=== PATIENT | male | born 1965 | race Caucasian/White ===

== ENCOUNTER 2024-02-25 21:38 | Inpatient (IN) | payer SELFPAY ==
[~2024-02-25] VITALS: Ht 167.6 cm; Wt 77.3 kg
[2024-02-25] MEDS: VANCOMYCIN 1G PREMIX 200 ML IV ONE (22:00)
[2024-02-25 22:49] LABS: BASOPHILS % 0.3 % (0.0-2.0); EOSINOPHILS % 0.5 % (0.0-5.0); HEMATOCRIT. 21.1 % (42.0-52.0); HEMOGLOBIN. 7.1 g/dL (14.0-18.0); LYMPHOCYTES % 9.9 % (20.0-50.0); MEAN CORPUSCULAR HEMOGLOBIN 28.6 pg (28.0-32.0); MEAN CORPUSCULAR HGB CONC 33.4 g/dL (31.0-37.0); MEAN CORPUSCULAR VOLUME 85.6 fL (80.0-94.0); MEAN PLATELET VOLUME 9.1 fl (7.4-10.4); MONOCYTES % 11.3 % (2.0-8.0); PLATELET 213 x1000/uL (130-400); RED BLOOD CELL COUNT 2.47 mill/uL (4.7-6.1); RED CELL DISTRIBUTION WIDTH 16.3 % (11.6-14.6); WHITE BLOOD COUNT 7.6 x1000/uL (4.5-11.0)
[2024-02-25 22:57] LABS: CHLORIDE 104 mEq/L (98-107); POTASSIUM 4.9 mEq/L (3.5-5.1); SODIUM 135 mEq/L (136-145)
[2024-02-25 22:58] LABS: CALCIUM 7.5 mg/dL (8.7-10.4); CARBON DIOXIDE 26 mEq/L (21-32)
[2024-02-25 22:59] LABS: INR 1.4; PROTHROMBIN TIME 14.9 sec (9.6-11.0)
[2024-02-25 23:03] LABS: CREATININE 1.1 mg/dL (0.6-1.3); GLUCOSE 104 mg/dL (70-105); UREA NITROGEN BLOOD 31 mg/dL (9-23)
[2024-02-25 23:04] LABS: AMMONIA 44 uMol/L (<32)
[2024-02-25 23:05] LABS: ALANINE AMINOTRANSFERASE 214 IU/L (10-49); ALBUMIN 2.4 g/dL (3.2-4.8); ASPARTATE AMINOTRANSFERASE 548 IU/L (<34); BILIRUBIN DIRECT 1.4 mg/dL (<=3.0); ETHANOL BLOOD < 10 mg/dL (<10); PROTEIN TOTAL 5.4 g/dL (6.0-8.3); TROPONIN I HIGH SENSITIVITY < 4 ng/L (3.0-53)
[2024-02-25] MEDS: SODIUM CHLORIDE 0.9% 1000ML BAG (SEPSIS BOLUS) IV ONE (23:31)
[2024-02-25] MEDS: PIPERACILLIN/TAZO 3.375G/50ML 50 ML IV ONE (23:32)
[2024-02-26] VITALS (59 sets, daily range): BP systolic 86–123; BP diastolic 52–83; PULSE 65–102; RESP 13–19; TEMP 97.1–99.1
[2024-02-26] MEDS ORDERED: NOREPINEPHRINE 8 MG in DEXT 5% WATER 242 ML IV PRN (00:15)
[2024-02-26] MEDS: SODIUM CHLORIDE 0.9% 1000ML BAG (SEPSIS BOLUS) IV ONE (00:27)
[2024-02-26] MEDS: NOREPINEPHRINE 8MG/250ML PMX 250 ML IV PRN (01:15)
[2024-02-26] MEDS: VANCOMYCIN 1G PREMIX 200 ML IV NR (01:35)
[2024-02-26] MEDS ORDERED: DEXTROSE 50% WATER 50ML SYRINGE IV PRN (12:00)
[2024-02-26] MEDS ORDERED: PHENYLEPHRINE 50 MG in DEXT 5% WATER 245 ML IV PRN (12:00)
[2024-02-26] MEDS ORDERED: CEFEPIME 1GM IN DEXT 5% 50ML IV SCH (12:00)
[2024-02-26] MEDS ORDERED: IPRATROPIUM/ALBUTEROL 0.5-3(2.5)MG/3ML NEB HHN PRN (12:00)
[2024-02-26] MEDS: MIDODRINE HCL 5MG TABLET PO SCH (13:00)
[2024-02-26] MEDS: INSULIN LISPRO 100 UNITS/ML SUBCUT SCH (13:20)
[2024-02-26] MEDS: BLOOD SUGAR DIAGNOSTIC STRIP TEST SCH (13:45)
[2024-02-26] MEDS: METRONIDAZOLE 500 MG PREMIX 100 ML IV SCH (13:59)
[2024-02-26] MEDS: ALBUMIN HUMAN 25GM/100ML (25%) IV NR (13:59)
[2024-02-26] MEDS: PANTOPRAZOLE SODIUM 40 MG/VIAL IV SCH (13:59)
[2024-02-26] MEDS ORDERED: VANCOMYCIN 1.5GM/250ML IV NR (14:00)
[2024-02-26] MEDS: VANCOMYCIN 750MG/150ML (BAXTER) IV SCH (15:17)
[2024-02-26] MEDS: CEFEPIME 2GM/100ML 100 ML IV SCH (15:18)
[2024-02-26] MEDS: DEXT 5%/0.45% NACL 1000ML 1,000 ML IV SCH (15:19)
[2024-02-26 15:51] LABS: HEMATOCRIT 22.1 % (42.0-52.0); HEMOGLOBIN 7.3 g/dL (14.0-18.0)
[2024-02-26 16:06] LABS: LACTATE DEHYDROGENASE 453 IU/L (120-246)
[2024-02-26 16:13] LABS: HEPATITIS B SURFACE ANTIGEN NEGATIVE (Negative)
[2024-02-26 16:34] LABS: HEPATITIS A AB IGM NEGATIVE (Negative); HEPATITIS B CORE AB IGM NEGATIVE (Negative)
[2024-02-26 16:35] LABS: HEPATITIS C AB NON REACTIVE (Neg) (Negative)
[2024-02-26 18:14] LABS: HEMOGLOBIN 7.3 g/dL (14.0-18.0)
[2024-02-26] MEDS: LACTULOSE ENEMA 1,000ML BOTTLE PR NR (18:48)
[2024-02-27] VITALS (57 sets, daily range): BP systolic 70–114; BP diastolic 48–80; PULSE 74–97; RESP 0–19; TEMP 97–98.2
[2024-02-27 00:35] LABS: HEMOGLOBIN 6.8 g/dL (14.0-18.0)
[2024-02-27 00:36] LABS: HEMATOCRIT 20.4 % (42.0-52.0)
[2024-02-27 01:50] LABS: CLARITY URINE CLEAR (CLEAR); COLOR URINE DARK YELLOW (YELLOW); GLUCOSE URINE NEGATIVE (NEGATIVE); KETONES URINE TRACE (NEGATIVE); LEUKOCYTE ESTERASE URINE NEGATIVE (NEGATIVE); NITRITE URINE NEGATIVE (NEGATIVE); OCCULT BLOOD URINE NEGATIVE (NEGATIVE); PH URINE 6.5 (4.5-8.0); PROTEIN URINE NEGATIVE (NEGATIVE); SPECIFIC GRAVITY URINE 1.025 (1.005-1.030)
[2024-02-27 02:13] LABS: *AMPHETAMINES SCREEN URINE NEGATIVE (NEGATIVE); *BARBITURATES SCREEN URINE NEGATIVE (NEGATIVE); *BENZODIAZEPINES SCREEN URINE NEGATIVE (NEGATIVE); *COCAINE SCREEN URINE NEGATIVE (NEGATIVE); CANNABINOID URINE SCREEN NEGATIVE (NEGATIVE); ECSTASY MDMA SCREEN URINE NEGATIVE (NEGATIVE); METHADONE URINE SCREEN NEGATIVE (NEGATIVE); OPIATES URINE SCREEN NEGATIVE (NEGATIVE); PHENCYCLIDINE URINE SCREEN NEGATIVE (NEGATIVE)
[2024-02-27] MEDS: VANCOMYCIN 750MG/150ML (BAXTER) IV SCH (05:26)
[2024-02-27 05:42] LABS: BASOPHILS % 0.5 % (0.0-2.0); EOSINOPHILS % 0.6 % (0.0-5.0); HEMATOCRIT. 24.4 % (42.0-52.0); HEMOGLOBIN. 8.1 g/dL (14.0-18.0); LYMPHOCYTES % 10.5 % (20.0-50.0); MEAN CORPUSCULAR HEMOGLOBIN 29.3 pg (28.0-32.0); MEAN CORPUSCULAR HGB CONC 33.1 g/dL (31.0-37.0); MEAN CORPUSCULAR VOLUME 88.6 fL (80.0-94.0); MEAN PLATELET VOLUME 9.2 fl (7.4-10.4); MONOCYTES % 12.1 % (2.0-8.0); NEUTROPHILS % 76.3 % (40.0-76.0); PLATELET 160 x1000/uL (130-400); RED BLOOD CELL COUNT 2.76 mill/uL (4.7-6.1); RED CELL DISTRIBUTION WIDTH 16.5 % (11.6-14.6); WHITE BLOOD COUNT 6.4 x1000/uL (4.5-11.0)
[2024-02-27 05:50] LABS: CHLORIDE 108 mEq/L (98-107); POTASSIUM 4.5 mEq/L (3.5-5.1); SODIUM 137 mEq/L (136-145)
[2024-02-27 05:51] LABS: CALCIUM 7.2 mg/dL (8.7-10.4); CARBON DIOXIDE 23 mEq/L (21-32)
[2024-02-27 05:55] LABS: AMMONIA 101 uMol/L (<32)
[2024-02-27 05:56] LABS: GLUCOSE 134 mg/dL (70-105); TRIGLYCERIDE 86 mg/dL (0-150); UREA NITROGEN BLOOD 33 mg/dL (9-23)
[2024-02-27 05:57] LABS: LDL CHOLESTEROL 53 mg/dL (5-100)
[2024-02-27 05:58] LABS: CHOLESTEROL 92 mg/dL (<200); HDL CHOLESTEROL < 20 mg/dL (>55)
[2024-02-27 06:00] LABS: THYROID STIMULATING HORMONE 1.95 uIU/mL (0.55-4.78)
[2024-02-27] MEDS ORDERED: SODIUM BICARBONATE 4% (2.4MEQ) 5ML VIAL IV ONE ×2 (10:43→10:44)
[2024-02-27] MEDS ORDERED: LIDOCAINE HCL 1% 10 MG/ML 10ML VIAL ONE (10:43)
[2024-02-27 11:07] LABS: HEMOGLOBIN 8.4 g/dL (14.0-18.0)
[2024-02-27] MEDS: LACTULOSE ENEMA 1,000ML BOTTLE PR SCH (16:00)
[2024-02-27 16:52] LABS: PROTEIN BODY FLUID < 2.0 gm/dL
[2024-02-27] MEDS: LACTULOSE 20G/30ML UDC PO SCH (22:04)
[2024-02-27 22:36] LABS: BODY FLUID MONOCYTES 10 %; BODY FLUID RBC 64 /cu mm (0-2000); BODY FLUID WBC 85 /cu mm (0-200)
[2024-02-28] VITALS (11 sets, daily range): BP systolic 91–108; BP diastolic 55–75; PULSE 76–87; RESP 11–15; TEMP 97.4–97.9
[2024-02-28] MEDS: MIDODRINE HCL 5MG TABLET PO NR (00:11)
[2024-02-28 05:44] LABS: CALCIUM 7.2 mg/dL (8.7-10.4); CARBON DIOXIDE 21 mEq/L (21-32); CHLORIDE 111 mEq/L (98-107); POTASSIUM 3.9 mEq/L (3.5-5.1); SODIUM 138 mEq/L (136-145)
[2024-02-28 05:47] LABS: INR 1.4
[2024-02-28 05:49] LABS: CREATININE 0.8 mg/dL (0.6-1.3); GLUCOSE 120 mg/dL (70-105); VANCOMYCIN TROUGH 7.5 ug/mL (5.0-10.0)
[2024-02-28 05:50] LABS: UREA NITROGEN BLOOD 23 mg/dL (9-23)
[2024-02-28 05:51] LABS: AMMONIA 42 uMol/L (<32)
[2024-02-28 05:52] LABS: ALANINE AMINOTRANSFERASE 161 IU/L (10-49); ALBUMIN 2.3 g/dL (3.2-4.8); ASPARTATE AMINOTRANSFERASE 326 IU/L (<34); BILIRUBIN TOTAL 3.2 mg/dL (0.1-1.0)
[2024-02-28 06:04] LABS: BASOPHILS % 0.2 % (0.0-2.0); EOSINOPHILS % 0.8 % (0.0-5.0); HEMOGLOBIN. 7.9 g/dL (14.0-18.0); LYMPHOCYTES % 12.3 % (20.0-50.0); MEAN CORPUSCULAR HEMOGLOBIN 29.1 pg (28.0-32.0); MEAN CORPUSCULAR HGB CONC 33.1 g/dL (31.0-37.0); MEAN PLATELET VOLUME 9.1 fl (7.4-10.4); NEUTROPHILS % 74.7 % (40.0-76.0); PLATELET 156 x1000/uL (130-400); RED BLOOD CELL COUNT 2.72 mill/uL (4.7-6.1); RED CELL DISTRIBUTION WIDTH 16.6 % (11.6-14.6); WHITE BLOOD COUNT 5.8 x1000/uL (4.5-11.0)
[2024-02-28] MEDS: MIDODRINE HCL 5MG TABLET PO SCH (08:45)
[2024-02-28 16:46] LABS: HEMATOCRIT 26.6 % (42.0-52.0); HEMOGLOBIN 8.8 g/dL (14.0-18.0)
[2024-02-28] MEDS: ALBUMIN HUMAN 25GM/100ML (25%) IV NR (17:37)
[2024-02-28] MEDS: RIFAXIMIN 550 MG TABLET NG SCH (20:37)
[2024-02-28] MEDS: ONDANSETRON HCL 4MG/2ML INJ IV PRN (22:37)
[2024-02-29] VITALS: BP 100/71; PULSE 98; RESP 15; TEMP 97.9
[2024-02-29 00:34] LABS: HEMATOCRIT 22.9 % (42.0-52.0); HEMOGLOBIN 7.6 g/dL (14.0-18.0)
[2024-02-29 04:00] VITALS: BP 106/66; PULSE 95; RESP 17; TEMP 97.2
[2024-02-29 05:13] LABS: CHLORIDE 114 mEq/L (98-107); POTASSIUM 3.5 mEq/L (3.5-5.1); SODIUM 139 mEq/L (136-145)
[2024-02-29 05:14] LABS: CALCIUM 7.3 mg/dL (8.7-10.4); CARBON DIOXIDE 21 mEq/L (21-32)
[2024-02-29 05:18] LABS: IRON 14 ug/dL (65-175)
[2024-02-29 05:19] LABS: CREATININE 0.8 mg/dL (0.6-1.3); GLUCOSE 108 mg/dL (70-105); UREA NITROGEN BLOOD 20 mg/dL (9-23)
[2024-02-29 05:21] LABS: ALANINE AMINOTRANSFERASE 134 IU/L (10-49); ALBUMIN 2.5 g/dL (3.2-4.8); AMMONIA 26 uMol/L (<32); ASPARTATE AMINOTRANSFERASE 243 IU/L (<34); BILIRUBIN TOTAL 2.7 mg/dL (0.1-1.0); PROTEIN TOTAL 5.1 g/dL (6.0-8.3); TOTAL IRON BINDING CAPACITY 200 ug/dl (250-425)
[2024-02-29 05:24] LABS: FERRITIN 31 ng/mL (22-322); FOLIC ACID (FOLATE) SERUM 18.09 ng/mL (>5.38)
[2024-02-29 05:54] LABS: VITAMIN B12 SERUM > 2000 pg/mL (211-911)
[2024-02-29 06:04] LABS: BASOPHILS % 0.5 % (0.0-2.0); EOSINOPHILS % 1.6 % (0.0-5.0); HEMATOCRIT. 22.1 % (42.0-52.0); HEMOGLOBIN. 7.4 g/dL (14.0-18.0); LYMPHOCYTES % 16.2 % (20.0-50.0); MEAN CORPUSCULAR HEMOGLOBIN 29.1 pg (28.0-32.0); MEAN CORPUSCULAR HGB CONC 33.4 g/dL (31.0-37.0); MEAN CORPUSCULAR VOLUME 87.1 fL (80.0-94.0); MEAN PLATELET VOLUME 8.8 fl (7.4-10.4); MONOCYTES % 13.1 % (2.0-8.0); NEUTROPHILS % 68.6 % (40.0-76.0); PLATELET 153 x1000/uL (130-400); RED BLOOD CELL COUNT 2.54 mill/uL (4.7-6.1); WHITE BLOOD COUNT 4.6 x1000/uL (4.5-11.0)
[2024-02-29 08:00] VITALS: BP 98/64; PULSE 87; RESP 16; TEMP 97.4
[2024-02-29] MEDS ORDERED: SPIRONOLACTONE 12.5MG TABLET PO SCH (09:00)
[2024-02-29 12:00] VITALS: BP 100/69; PULSE 82; RESP 17; TEMP 97.5
[2024-02-29 16:00] VITALS: BP 100/71; PULSE 78; RESP 21; TEMP 97.4
[2024-02-29 18:14] LABS: HEMATOCRIT 25.3 % (42.0-52.0); HEMOGLOBIN 8.2 g/dL (14.0-18.0)
[2024-02-29 20:00] VITALS: BP 99/65; PULSE 90; RESP 14; TEMP 97.6
[2024-02-29] MEDS: TRAZODONE HCL 50MG TABLET PO SCH (20:29)
[2024-02-29] MEDS: LACTULOSE 20G/30ML UDC PO SCH (20:29)
[2024-03-01] VITALS (7 sets, daily range): BP systolic 98–115; BP diastolic 60–86; PULSE 82–108; RESP 16–23; TEMP 97.5–98.1
[2024-03-01 06:45] LABS: AMMONIA < 17 uMol/L (<32)
[2024-03-01 06:47] LABS: BASOPHILS % 0.4 % (0.0-2.0); EOSINOPHILS % 2.3 % (0.0-5.0); HEMATOCRIT. 24.3 % (42.0-52.0); HEMOGLOBIN. 7.9 g/dL (14.0-18.0); LYMPHOCYTES % 14.4 % (20.0-50.0); MEAN CORPUSCULAR HEMOGLOBIN 28.8 pg (28.0-32.0); MEAN CORPUSCULAR HGB CONC 32.4 g/dL (31.0-37.0); MEAN CORPUSCULAR VOLUME 88.9 fL (80.0-94.0); MEAN PLATELET VOLUME 8.7 fl (7.4-10.4); MONOCYTES % 11.8 % (2.0-8.0); NEUTROPHILS % 71.1 % (40.0-76.0); PLATELET 163 x1000/uL (130-400); RED BLOOD CELL COUNT 2.73 mill/uL (4.7-6.1); RED CELL DISTRIBUTION WIDTH 17.2 % (11.6-14.6)
[2024-03-01 06:52] LABS: CHLORIDE 112 mEq/L (98-107); POTASSIUM 3.7 mEq/L (3.5-5.1); SODIUM 140 mEq/L (136-145)
[2024-03-01 06:53] LABS: CALCIUM 7.4 mg/dL (8.7-10.4); CARBON DIOXIDE 21 mEq/L (21-32)
[2024-03-01 06:58] LABS: CREATININE 0.9 mg/dL (0.6-1.3); GLUCOSE 131 mg/dL (70-105); UREA NITROGEN BLOOD 19 mg/dL (9-23)
[2024-03-01 06:59] LABS: ALANINE AMINOTRANSFERASE 122 IU/L (10-49)
[2024-03-01 07:00] LABS: ALBUMIN 2.6 g/dL (3.2-4.8); ASPARTATE AMINOTRANSFERASE 212 IU/L (<34); BILIRUBIN TOTAL 3.1 mg/dL (0.1-1.0); PROTEIN TOTAL 5.3 g/dL (6.0-8.3)
[2024-03-01 07:45] LABS: INR 1.5; PROTHROMBIN TIME 16.1 sec (9.6-11.0)
[2024-03-01] MEDS: ALBUMIN HUMAN 25GM/100ML (25%) IV NR (11:11)
[2024-03-01] MEDS ORDERED: PROPOFOL 200MG/20ML VIAL IV ONE ×2 (13:14→13:46)
[2024-03-01] MEDS ORDERED: ONDANSETRON HCL 4MG/2ML INJ IV PRN (13:30)
[2024-03-01] MEDS ORDERED: FENTANYL CITRATE/PF 50MCG/ML 2ML VIAL IV PRN (13:45)
[2024-03-01] MEDS: SUCRALFATE 1G TABLET PO SCH (17:37)
[2024-03-01] MEDS: FERROUS SULFATE 325MG TABLET PO SCH (19:37)
[2024-03-02] VITALS: BP 105/75; PULSE 107; RESP 20; TEMP 98.6
[2024-03-02 04:00] VITALS: BP 106/70; PULSE 104; RESP 21; TEMP 99.4
[2024-03-02 05:48] LABS: CHLORIDE 111 mEq/L (98-107); SODIUM 139 mEq/L (136-145)
[2024-03-02 05:49] LABS: CALCIUM 7.6 mg/dL (8.7-10.4); CARBON DIOXIDE 20 mEq/L (21-32)
[2024-03-02 05:54] LABS: GLUCOSE 116 mg/dL (70-105); UREA NITROGEN BLOOD 18 mg/dL (9-23)
[2024-03-02 05:56] LABS: AMMONIA < 17 uMol/L (<32)
[2024-03-02 06:12] LABS: BASOPHILS % 0.5 % (0.0-2.0); EOSINOPHILS % 2.9 % (0.0-5.0); HEMATOCRIT. 25.1 % (42.0-52.0); LYMPHOCYTES % 11.8 % (20.0-50.0); MEAN CORPUSCULAR HEMOGLOBIN 28.7 pg (28.0-32.0); MEAN CORPUSCULAR VOLUME 89.8 fL (80.0-94.0); MEAN PLATELET VOLUME 8.9 fl (7.4-10.4); MONOCYTES % 10.7 % (2.0-8.0); NEUTROPHILS % 74.1 % (40.0-76.0); PLATELET 166 x1000/uL (130-400); RED BLOOD CELL COUNT 2.79 mill/uL (4.7-6.1); RED CELL DISTRIBUTION WIDTH 17.2 % (11.6-14.6)
[2024-03-02 07:13] LABS: INR 1.5; PROTHROMBIN TIME 16.5 sec (9.6-11.0)
[2024-03-02 08:00] VITALS: BP 104/71; PULSE 102; RESP 28; TEMP 98
[2024-03-02] MEDS ORDERED: FERR-63 PO (13:15)
[2024-03-02] MEDS ORDERED: AMOX1TAB16 MT (13:15)
[2024-03-02] MEDS ORDERED: LACT10SO7 PO (13:15)
[2024-03-02] MEDS ORDERED: SUCR1TAB30 PO (13:15)
[2024-03-02] MEDS ORDERED: CARV3.1242 MT (13:15)
[2024-03-02] MEDS ORDERED: OMEP20CA14 MT (13:15)
[2024-03-02 14:00] VITALS: BP 112/77; PULSE 97; RESP 23
[2024-03-02] MEDS: CARVEDILOL 3.125 MG TABLET PO NR (14:19)
[2024-03-02 14:33] VITALS: BP 112/77; PULSE 23; TEMP 98; O2SAT 98
[2024-03-02 16:00] VITALS: BP 98/80; PULSE 90; RESP 27
== END 2024-03-02 17:25 | disposition home or self-care (01) | DRG 720 ==
LOC: ER 21:38 → CVICU 02-26 00:32 → EDBEDREQSVC 02-26 00:38 → EDBEDREQ 02-26 00:38 → 5EST 02-27 19:22
PROVIDERS: ADMIT Hospitalist; ATTEND Hospitalist
PROC: 30233N1 Transfusion of Nonautologous Red Blood Cells into Peripheral Vein, Percutaneous Approach (ICD-10-PCS; 2024-02-27)
PROC: 0W9G3ZZ Drainage of Peritoneal Cavity, Percutaneous Approach (ICD-10-PCS; 2024-02-27)
PROC: 0DB78ZX Excision of Stomach, Pylorus, Via Natural or Artificial Opening Endoscopic, Diagnostic (ICD-10-PCS; principal; 2024-03-01)
PROC: 06L38CZ Occlusion of Esophageal Vein with Extraluminal Device, Via Natural or Artificial Opening Endoscopic (ICD-10-PCS; 2024-03-01)
DX: A41.9 Sepsis, unspecified organism (principal); N17.0 Acute kidney failure with tubular necrosis; G92.8 Other toxic encephalopathy; R65.21 Severe sepsis with septic shock; R57.1 Hypovolemic shock; I85.10 Secondary esophageal varices without bleeding; D68.9 Coagulation defect, unspecified; N18.6 End stage renal disease; E87.1 Hypo-osmolality and hyponatremia; E83.51 Hypocalcemia; K72.90 Hepatic failure, unspecified without coma; E88.09 Other disorders of plasma-protein metabolism, not elsewhere classified; K70.31 Alcoholic cirrhosis of liver with ascites; D50.0 Iron deficiency anemia secondary to blood loss (chronic); Q60.0 Renal agenesis, unilateral; K76.82 Hepatic encephalopathy; J98.11 Atelectasis; K31.89 Other diseases of stomach and duodenum; K29.70 Gastritis, unspecified, without bleeding; K76.6 Portal hypertension; K80.20 Calculus of gallbladder without cholecystitis without obstruction; F10.20 Alcohol dependence, uncomplicated; Z79.899 Other long term (current) drug therapy
CPT/HCPCS: 36415; 49083; 71045; 74176; 80048; 80053; 80061; 80076; 80202; 80305; 80320; 81003; 82040; 82140; 82607; 82728; 82746; 82962; 83036; 83540; 83550; 83605; 83615; 83880; 83986; 84145; 84443; 84484; 85014; 85018; 85025; 85044; 86705; 86709; 86850; 86900; 86920; 87340; 88305; 93005; 93306; 93970; 99291; A6261; J0692; J1815; J2405; J2470; J2543; J2704; J3370; J3490; J7030; P9016; P9047; G0480